=== PATIENT | female | born 1990 ===

== ENCOUNTER 2016-09-07 21:24 | Emergency (ER) | payer SELFPAY ==
[2016-09-07 21:30] VITALS: BP 135/92
[2016-09-07] MEDS ORDERED: TERCONAZOLE20 GM VG (21:51)
[2016-09-07] MEDS ORDERED: DIFLUCAN150 M1 PO (21:53)
--- NOTE | 2016-09-07 22:10 | ED GI/GU/ABDOMINAL COMPLAINT ---
History of Present Illness General Chief Complaint: General Adult Stated Complaint: HEMORROID ? PER PT Source: patient Exam Limitations: no limitations Vital Signs & Intake/Output Vital Signs & Intake/Output Vital Signs Date Time Temp Pulse Resp B/P Pulse O2 O2 Flow FiO2 Ox Delivery Rate 09/07 2130 110 22 135/92 98 Room Air ED Intake and Output 09/08 0000 09/07 1200 Intake Total Output Total Balance Patient 125 lb Weight Allergies Coded Allergies: sesame seed (ANAPHYLAXIS 09/07/16) Reconcile Medications Ciprofloxacin HCl (Cipro) 500 MG TABLET 1 TAB PO BID UTI Fluconazole (Diflucan) 150 MG TABLET 1 TAB PO ONCE YEAST INFECTION (Reported) Lidocaine (Anecream5) 5 % CREAM..G. 1 KAREN TOP TID PRN HEMORRHOIDS APPLY TO AFFECTED AREAS DIRECTED Terconazole 0.8 % CREAM.APPL 1 A VG QPM YEAST INFECTION (Reported) Triage Note: PER PT SEVERE HEMMORRHOIDS UNABLE TO SIT OR STAND PER PT HANGING OUT LMP 08/10/16 Triage Nurses Notes Reviewed? yes ? N Is pt currently ? No Duration: constant Timing: recent history Quality/Severity: severe, throbbing Severity Numbers: 8 Radiation: no radiation Activities at Onset: none HPI: Patient is a 26-year-old female with a past medical history of constipation who presents emergency room with a 5 day history of acute onset of rectal pain soft tissue protrusion and intermittent bleeding after bowel movements. Patient states that sitting makes worse. Patient also has been complaining of pain upon urination and increased frequency of urination the past 5-7 days. Patient is able tolerate by mouth denies any nausea or vomiting. Denies any fever chills or back pain. Denies any vaginal bleeding or discharge. Patient was seen and evaluated by urgent care facility a few days ago was given medications of Diflucan and antifungal cream for concerns of yeast infection. Patient has been taking [id number] hydrocortisone cream for her hemorrhoids. Patient states that she does not have health insurance and does not have primary care doctor nor an PRODUCT ASSURANCE ENGINEER. Patient has also never followed up with a straight cutter machine for her constipation. Patient states that upon bowel movements makes her symptoms worse. Patient denies any blood or melena in the stool after bowel production. Patient is not sexually active (LESLIE MOROCHO,LIZZETH) Past History Travel History Traveled to [place] past 21 day No Medical History Any Pertinent Medical History? none Neurological: NONE EENT: NONE Cardiovascular: NONE Respiratory: NONE Gastrointestinal: NONE Hepatic: NONE Renal: NONE Musculoskeletal: NONE Psychiatric: NONE Endocrine: NONE Surgical History Surgical History: non-contributory Psychosocial History What is your primary language Czech Tobacco Use: Never used Family History Hx Contributory? No (LIZZETH WAGNER) Review of Systems Review of Systems Constitutional: Reports: no symptoms. EENTM: Reports: no symptoms. Respiratory: Reports: no symptoms. Cardiovascular: Reports: no symptoms. GI: Reports: see HPI, constipation. Denies: abdominal pain. Genitourinary: Reports: see HPI. Musculoskeletal: Reports: no symptoms. Skin: Reports: no symptoms. Neurological/Psychological: Reports: no symptoms. Hematologic/Endocrine: Reports: no symptoms. Immunologic/Allergic: Reports: no symptoms. All Other Systems: Reviewed and Negative (LIZZETH WAGNER) Physical Exam Physical Exam General Appearance: moderate distress Gastrointestinal: normal bowel sounds, soft, non-tender, no organomegaly Rectal: MINIMAL 6:00 PLACEMENT OF A SOFT SKIN PROTRUSION HEMORRHOID NONTHROMBOSED NO ACTIVE BLEEDING AND NO SURROUNDING FLUCTUANCE NO SURROUNDING ERYTHEMA NO SURROUNDING WARMTH NO SURROUNDING INDURATION AROUND THE PERIRECTAL OR RECTAL REGION. sEVERE POINT TENDERNESS NOTED TO EXTERNAL HEMORRHOID. Pelvic: normal external exam, no masses, NORMAL EXTERNAL LABIA NOTED NO ACTIVE DISCHARGE Comments: HEENT: Normal EENT exam, Neck: Supple, no lymphadenopathy, normal range of motion without pain or tenderness Back: Nontender, no CVA tenderness. Cardiovascular: Regular rate and rhythms no murmurs rubs or gallops, normal JVP Respiratory: Chest nontender. No respiratory distress.breath sounds clear to auscultation bilaterally Abdomen: Soft, nontender nondistended, no appreciable organomegaly. Normal bowel sounds. No ascites Extremity: No edema, no calf tenderness to palpation, normal and equal pulses. Neuro: Alert oriented x3, motor sensory normal, Skin: No appreciable rash on exposed skin, skin is warm and dry. Psych: Mood and affect is normal, memory and judgment is normal. Core Measures ACS in differential dx? No Severe Sepsis Present: No Septic Shock Present: No (LIZZETH WAGNER) Progress Differential Diagnosis: AAA, AMI, appendicitis, biliary colic, bowel obstruction , cholecystitis, diverticulitis, ectopic , endometritis, esophageal varices, gastritis, hepatitis, hernia, hemorrhoids, ischemic bowel, inflamm bowel dis, intrauterine , kidney stone, Roxann-Carmita tear, ovarian cyst , ovarian torsion, pancreatitis, PID/cervicitis, peptic ulcer, PUD/GERD, perforated viscous, SBO, threatened AB, UTI/pyelo Plan of Care: Orders Procedure Date/time Status CULTURE,URINE 09/07 2230 Active URINE 09/07 2230 Complete URINALYSIS 09/07 2230 Complete Laboratory Tests 09/07/162236: Urine Color YEL, Urine Clarity HAZY H, Urine pH 6.0, Ur Specific [place] >= 1.030, Urine Protein TRACE H, Urine Ketones TRACE H, Urine Nitrite NEG, Urine Bilirubin NEG, Urine Urobilinogen 0.2, Ur Leukocyte Esterase SMALL H, Ur Microscopic SEDIMENT EXAMINED, Urine RBC 5-10 H, Urine WBC 15-25 H, Ur Epithelial Cells MOD H, Urine Mucus FEW, Urine Hemoglobin TRACE-INTACT, Urine Glucose NEG, Urine Test NEGATIVE Microbiology 09/07 2236 URINE ROUT: Urine Culture - RECD Due to patient's symptoms of dysuria and increased frequency of urination and urinary analysis she will be treated for concerns of urinary tract infection. There is no CVA tenderness and no fevers for concerns of pyelonephritis at this time. Inspection to the rectal region was noted for a nonthrombosed external hemorrhoid I strongly advised patient to improve her constipation to improve her hemorrhoid symptoms to begin stool softener and laxative as directed. Patient was strongly advised to establish healthcare insurance and to follow-up and was given primary care doctor PRODUCT ASSURANCE ENGINEER and straight cutter machine for her symptoms. Urine culture currently is pending. Patient has nontender abdomen and is able tolerate by mouth (LIZZETH WAGNER) Initial ED EKG: none (LIZZETH WAGNER) Departure Departure Disposition: HOME OR SELF CARE Condition: Stable Clinical Impression Primary Impression: UTI (urinary tract infection) Secondary Impressions: Constipation, External hemorrhoid Referrals: SARA HOLT,GLORY Santo PATIENT HAS NO PRIMARY CARE DR (PCP/Family) JUSTIN HOLT,ARTI Mata Additional Instructions: As discussed tomorrow please use the Internet and apply for [employer] insurance for your medical coverage. Begin the prescription of ciprofloxacin as directed for the full course. Begin the prescription of viscous lidocaine and apply as directed for your pain. Continue your already prescribed Diflucan and cream for your symptoms. Begin [id number] stool softeners of DOCULSATE to improve your bowel movements. Continue if needed your already purchased milk of magnesia for breakthrough bowel movement relief. One to have established healthcare insurance please use the referral brochure for [facility] practice to establish a doctor. ONCE YOU establish health insurance and if symptoms still continue please follow-up with Dr. Mendenhall for gastroenterology evaluation of your hemorrhoids. Please established when YOU health insurance and PRODUCT ASSURANCE [employer] Dr. ANAND. If symptoms worsen return to emergency room. Departure Forms: Customer Survey General Discharge Information Prescriptions: Current Visit Scripts Lidocaine (Anecream5) 1 KAREN TOP TID PRN HEMORRHOIDS #1 APPLY TO AFFECTED AREAS DIRECTED Ciprofloxacin HCl (Cipro) 1 TAB PO BID #14 TAB (LIZZETH WAGNER) PA/SET UP MOLD TECHNICIAN Co-Sign Statement Statement: ED Attending supervision documentation- [] I saw and evaluated the patient. I have also reviewed all the pertinent lab results and diagnostic results. I agree with the findings and the plan of care as documented in the PA's/SET UP MOLD TECHNICIAN's documentation. [X] I have reviewed the ED Record and agree with the PA's/SET UP MOLD TECHNICIAN's documentation. [] Additions or exceptions (if any) to the PAs/SET UP MOLD TECHNICIAN's note and plan are summarized below: [] (JOSÉ MIGUEL HOLT,CY Kelly)
[2016-09-07] MEDS ORDERED: ANECREAM515 GM TOP (23:08)
[2016-09-07] MEDS ORDERED: CIPRO500 M1 PO (23:08)
== END 2016-09-07 23:21 ==
LOC: ERH 21:24
DX: N39.0 Urinary tract infection, site not specified (principal); K59.00 Constipation, unspecified; K64.4 Residual hemorrhoidal skin tags
CPT/HCPCS: 81001; 81025; 87086